=== PATIENT | male | born 1950 | race Caucasian/White ===

== ENCOUNTER 2017-10-16 19:26 | Observation (INO) | payer MEDICARE ==
[2017-10-16] MEDS ORDERED: MORPHINE SULFATE 4 MG/ML SYRINGE IVP STA (19:51)
[2017-10-16] MEDS ORDERED: RX INFO: IV CONTRAST WAS GIVEN 1 EACH MISC MISCELLANE PRN (19:51)
[2017-10-16] MEDS ORDERED: SODIUM CHLORIDE 0.9% 1,000 ML IV ONE (19:51)
[2017-10-16 20:20] LABS: Basophils % (A) 1 %; Eosinophils # (A) 0.2 k/uL (0-0.7); Eosinophils % (A) 3 %; HCT 43.6 % (39.0-53.0); HGB 14.8 gm/dL (13.0-17.5); Lymphocytes # (A) 1.2 k/uL (1.0-4.8); Lymphocytes % (A) 18 %; MCH 30.6 pg (25.0-35.0); MCV 90.2 fL (80.0-100.0); Mean Platelet Volume 6.8; Monocytes # (A) 0.4 k/uL (0-1.0); Monocytes % (A) 6 %; Neutrophils # (A) 4.7 k/uL (1.3-7.7); Neutrophils % (A) 72 %; Platelet Count 186 k/uL (150-450); RBC 4.84 m/uL (4.30-5.90); RDW 13.4 % (11.5-15.5); WBC 6.6 k/uL (3.8-10.6)
[2017-10-16 20:31] LABS: ALT 28 U/L (21-72); AST 24 U/L (17-59); Alkaline Phosphatase 59 U/L (38-126); Anion Gap 10 mmol/L; Blood Urea Nitrogen 17 mg/dL (9-20); Calcium 9.3 mg/dL (8.4-10.2); Carbon Dioxide 26 mmol/L (22-30); Chloride 104 mmol/L (98-107); Glucose 104 mg/dL (74-99); Potassium 4.3 mmol/L (3.5-5.1); Sodium 140 mmol/L (137-145); Total Bilirubin 1.2 mg/dL (0.2-1.3); Total Protein 6.3 g/dL (6.3-8.2)
--- NOTE | 2017-10-16 21:37 | ED ---
General Adult HPI - General Chief complaint: Abdominal Pain Stated complaint: Abd Pain Time Seen by Provider: 10/16/17 19:42 Source: patient Mode of arrival: ambulatory Limitations: no limitations - History of Present Illness Initial comments: Wilmer is a 67yo male with PMH significant for perforating ulcer now s/p partial gastrectomy and vagotomy who presents to the emergency department this evening for evaluation of right lower quadrant abdominal pain since waking this morning. Patient reports that he has been in his usual state of health recently , yesterday he did go to the [employer] where he is significant amount of popcorn. He states that today he woke with some right lower quadrant abdominal pain. He states that it was a dull cramping sensation, he tried to ignore it. Patient states that he had a normal bowel movement without any blood. He reports that he has not had much of an appetite and hasn't eaten or drank too much throughout the day today. He states that he was able to 10 to his usual weekend activities including mowing the lawn but throughout that time had persistent pain in his right lower quadrant. This evening the pain persisted and continued to get worse at which time he told his who decided to bring him to the ER for further evaluation. Patient reports that he had an appendectomy at the age of 11, he has never had a bowel obstruction or any known adhesions. He states that he had a colonoscopy at couple of months ago which noted a few polyps as well as some diverticuli, he's never had an episode of diverticulitis in the past. He was not advised that he should avoid any foods due to the diverticuli. She has a history of kidney stones but this pain is not similar, he has no history of urinary tract infections. He is not having any hematuria, dysuria or urinary frequency. - Related Data Home Medications Medication Instructions Recorded Confirmed No Known Home Medications [No 10/16/17 10/16/17 Known Home Medications] Allergies Allergy/AdvReac Type Severity Reaction Status Date / Time No Known Allergies Allergy Verified 10/16/17 19:41 Review of Systems ROS Statement: Those systems with pertinent positive or pertinent negative responses have been documented in the HPI. ROS Other: All systems not noted in ROS Statement are negative. Constitutional: Denies: fever, chills Respiratory: Denies: cough, dyspnea Cardiovascular: Denies: chest pain, palpitations Endocrine: Denies: fatigue Gastrointestinal: Reports: abdominal pain, nausea, diarrhea (chronic due to gastrectomy). Denies: vomiting, constipation, hematemesis, melena, hematochezia Genitourinary: Denies: urgency, dysuria Skin: Denies: rash, lesions Neurological: Denies: headache, weakness Psychiatric: Denies: anxiety Hematological/Lymphatic: Denies: easy bleeding Past Medical History Additional Past Medical History / Comment(s): kidney stones,colon polyps, diverticuli, perforated gastric ulcer History of Any Multi-Drug Resistant Organisms: None Reported Past Surgical History: Appendectomy, Plyoromyotomy Additional Past Surgical History / Comment(s): abdominal surgery Past Psychological History: No Psychological Hx Reported Smoking Status: Never smoker Past Alcohol Use History: Occasional Past Drug Use History: None Reported General Exam Limitations: no limitations General appearance: alert, in no apparent distress Head exam: Present: atraumatic, normocephalic Eye exam: Present: normal appearance ENT exam: Present: normal exam Neck exam: Present: normal inspection Respiratory exam: Present: normal lung sounds bilaterally. Absent: respiratory distress Cardiovascular Exam: Present: regular rate, normal rhythm GI/Abdominal exam: Present: soft, tenderness, normal bowel sounds, other (Well- healed midline surgical scar). Absent: distended, guarding, rebound, rigid Rectal exam: Present: deferred Extremities exam: Present: normal inspection, normal capillary refill. Absent: tenderness, pedal edema, joint swelling, calf tenderness Back exam: Present: normal inspection, full ROM Neurological exam: Present: alert, oriented X3 Psychiatric exam: Present: normal affect, normal mood Skin exam: Present: warm, dry Course Vital Signs 10/16/17 10/16/17 10/17/17 19:35 22:00 00:00 Temperature 97.4 F L 97.9 F 98.3 F Pulse Rate 65 77 63 Respiratory 16 20 20 Rate Blood Pressure 132/84 148/81 136/68 O2 Sat by Pulse 99 97 99 Oximetry Medical Decision Making - Medical Decision Making The patient was seen and evaluated, history is obtained from the patient and his at bedside Patient with right lower quadrant abdominal pain throughout the day today, decreased appetite, normal activity level. Patient with history of appendectomy in the past, known diverticulitis but no episodes of diverticulitis in the past. Patient with history of kidney stones but reports that this pain is not similar to previous episodes. Labs were reviewed with no significant abnormalities Computed tomography scan reveals prominent loops of bowel in the right lower quadrant, this could represent a very early small bowel obstruction, the patient did have a small bowel movement earlier today and is nauseated but not vomiting. Results were discussed with the patient and his at bedside, advised that I suspect he may have a very early or possibly even resolving bowel obstruction. I did recommend that the patient be brought into observation for serial abdominal exams and evaluation by a surgeon. Patient are agreeable to this. Patient reports that his anal has resolved after IV morphine. The results were discussed with surgery on-call Dr. Anaya at this time he recommends admission to medicine and he will evaluate the patient in the morning. Patient care was discussed with Dr. Lara who accepts the patient to his service with a consult to general surgery Dr. anaya. Observation and consult orders were placed. - Lab Data Result diagrams: 10/16/17 20:12 10/16/17 20:12 Lab Results 10/16/17 10/16/17 10/16/17 Range/Units 20:12 20:12 21:35 WBC 6.6 (3.8-10.6) k/uL RBC 4.84 (4.30-5.90) m/uL Hgb 14.8 (13.0-17.5) gm/dL Hct 43.6 (39.0-53.0) % MCV 90.2 (80.0-100.0) fL MCH 30.6 (25.0-35.0) pg MCHC 34.0 (31.0-37.0) g/dL RDW 13.4 (11.5-15.5) % Plt Count 186 (150-450) k/uL Neutrophils % 72 % Lymphocytes % 18 % Monocytes % 6 % Eosinophils % 3 % Basophils % 1 % Neutrophils # 4.7 (1.3-7.7) k/uL Lymphocytes # 1.2 (1.0-4.8) k/uL Monocytes # 0.4 (0-1.0) k/uL Eosinophils # 0.2 (0-0.7) k/uL Basophils # 0.0 (0-0.2) k/uL Sodium 140 (137-145) mmol/L Potassium 4.3 (3.5-5.1) mmol/L Chloride 104 (98-107) mmol/L Carbon Dioxide 26 (22-30) mmol/L Anion Gap 10 mmol/L BUN 17 (9-20) mg/dL Creatinine 0.69 (0.66-1.25) mg/dL Est GFR (CKD-EPI)AfAm >90 (>60 ml/min/1.73 sqM) Est GFR (CKD-EPI)NonAf >90 (>60 ml/min/1.73 sqM) Glucose 104 H (74-99) mg/dL Calcium 9.3 (8.4-10.2) mg/dL Total Bilirubin 1.2 (0.2-1.3) mg/dL AST 24 (17-59) U/L ALT 28 (21-72) U/L Alkaline Phosphatase 59 (38-126) U/L Total Protein 6.3 (6.3-8.2) g/dL Albumin 4.0 (3.5-5.0) g/dL Urine Color Yellow Urine Appearance Clear (Clear) Urine pH 5.5 (5.0-8.0) Ur Specific [place] 1.021 (1.001-1.035) Urine Protein Negative (Negative) Urine Glucose (UA) Negative (Negative) Urine Ketones Negative (Negative) Urine Blood Negative (Negative) Urine Nitrite Negative (Negative) Urine Bilirubin Negative (Negative) Urine Urobilinogen <2.0 (<2.0) mg/dL Ur Leukocyte Esterase Negative (Negative) Disposition Clinical Impression: RLQ abdominal pain Disposition: ADMITTED IP TO THIS [facility] Condition: Good Referrals: Barry Goodman DO [Primary Care Provider] - 1-2 days Time of Disposition: 02:00 Decision Time: 02:00
[2017-10-16 22:07] LABS: Appearance,Urine Clear (Clear); Bilirubin,Urine Negative (Negative); Blood,Urine Negative (Negative); Color,Urine Yellow; Glucose,Urine (UA) Negative (Negative); Ketones,Urine Negative (Negative); Leukocyte Esterase,Urine Negative (Negative); Nitrite,Urine Negative (Negative); PH, Urine 5.5 (5.0-8.0); Protein,Urine Negative (Negative); Specific Gravity,Urine 1.021 (1.001-1.035); Urobilinogen,Urine <2.0 mg/dL (<2.0)
--- NOTE | 2017-10-16 22:34 | CT ---
EXAMINATION TYPE: CT abdomen pelvis w con DATE OF EXAM: 10/16/2017 COMPARISON: NONE HISTORY: RLQ Pain CT DLP: 412.60 mGycm. Automated exposure control for dose reduction was used. TECHNIQUE: Helical acquisition of images was performed from the lung bases through the pelvis. CONTRAST: Performed without Oral Contrast and with IV Contrast, patient injected with 100 mL of Isovu e 300. FINDINGS: LUNG BASES: No significant abnormality is appreciated. LIVER/GB: No significant abnormality is appreciated. PANCREAS: No significant abnormality is seen. SPLEEN: No significant abnormality is seen. ADRENALS: No significant abnormality is seen. KIDNEYS: No significant abnormality is seen. FREE AIR: No free air is visualized. ABDOMINAL ADENOPATHY: None visualized REPRODUCTIVE ORGANS: No significant abnormality is seen URINARY BLADDER: No significant abnormality is seen. PELVIC ADENOPATHY: None visualized. OSSEOUS STRUCTURES: No significant abnormality is seen. BOWEL: There are fluid-filled distended loops of small bowel throughout the right and left lower kymberly drants. No bowel wall thickening, and the mesentery is remarkable. Would suggest continued clinical s urveillance - and follow-up IV contrast CT if warranted. VASCULATURE: Unremarkable. IMPRESSION: NONSPECIFIC SMALL BOWEL LOOP PROMINENCE IN THE RIGHT LOWER QUADRANT.
[2017-10-17] MEDS ORDERED: NALOXONE 0.4 MG/ML 1 ML VIAL IV PRN (01:55)
[2017-10-17] MEDS: SODIUM CHLORIDE 0.9% 1,000 ML IV SCH ×2 (02:22→08:35)
[2017-10-17 02:46] VITALS: RESP 16
[2017-10-17] MEDS ORDERED: MORPHINE SULFATE 4 MG/ML SYRINGE IVP PRN (03:20)
--- NOTE | 2017-10-17 13:53 | P.GSCN ---
History of Present Illness Consult date: 10/17/17 History of present illness: This 67-year-old male who presented a hospital last night with a chief complaint of abdominal pain and some nausea. He stated his last bowel movement was yesterday and it was liquid he normally has liquid bowel movements. He has past surgical history significant for pyloroplasty with vagotomy 35 years ago secondary to bleeding gastric ulcers. He also had an appendectomy at age 11. She's had similar symptoms before in the past usually resolve on their own. He' s never had had surgery for small bowel obstruction. He denies fevers chills he denies any other recent illness denies any sick contacts. Past Medical History Additional Past Medical History / Comment(s): kidney stones,colon polyps, diverticuli, perforated gastric ulcer History of Any Multi-Drug Resistant Organisms: None Reported Past Surgical History: Appendectomy, Plyoromyotomy Additional Past Surgical History / Comment(s): abdominal surgery Past Anesthesia/Blood Transfusion Reactions: No Reported Reaction Past Psychological History: No Psychological Hx Reported Smoking Status: Former smoker Past Alcohol Use History: Occasional Past Drug Use History: None Reported - Past Family History Father Family Medical History: No Reported History Mother Family Medical History: No Reported History Medications and Allergies Home Medications Medication Instructions Recorded Confirmed Type Aspirin EC [Ecotrin Low Dose] 81 mg PO DAILY 10/17/17 10/17/17 History Cholecalciferol [Vitamin D3] 1,000 unit PO DAILY 10/17/17 10/17/17 History Multivitamins, Thera [Multivitamin 1 tab PO DAILY 10/17/17 10/17/17 History (formulary)] Allergies Allergy/AdvReac Type Severity Reaction Status Date / Time No Known Allergies Allergy Verified 10/17/17 09:31 Surgical - Exam Osteopathic Statement: *. No significant issues noted on an osteopathic structural exam other than those noted in the History and Physical/Consult. Vital Signs Temp Pulse Resp BP Pulse Ox 97.4 F L 65 16 132/84 99 10/16/17 19:35 10/16/17 19:35 10/16/17 19:35 10/16/17 19:35 10/16/17 19:35 - General well developed, well nourished, no distress - Eyes PERRL - Neck no masses, trachea midline - Respiratory normal expansion, normal respiratory effort - Cardiovascular Rhythm: regular - Abdomen Abdomen: soft, non tender - Neurologic normal coordination, normal sensation - Psychiatric oriented to time, oriented to person, oriented to place Results - Labs 10/16/17 20:12 10/16/17 20:12 Abnormal Lab Results - Last 24 Hours (Table) 10/16/17 Range/Units 20:12 Glucose 104 H (74-99) mg/dL Diabetes panel 10/16/17 Range/Units 20:12 Sodium 140 (137-145) mmol/L Potassium 4.3 (3.5-5.1) mmol/L Chloride 104 (98-107) mmol/L Carbon Dioxide 26 (22-30) mmol/L BUN 17 (9-20) mg/dL Creatinine 0.69 (0.66-1.25) mg/dL Glucose 104 H (74-99) mg/dL Calcium 9.3 (8.4-10.2) mg/dL AST 24 (17-59) U/L ALT 28 (21-72) U/L Alkaline Phosphatase 59 (38-126) U/L Total Protein 6.3 (6.3-8.2) g/dL Albumin 4.0 (3.5-5.0) g/dL Calcium panel 10/16/17 Range/Units 20:12 Calcium 9.3 (8.4-10.2) mg/dL Albumin 4.0 (3.5-5.0) g/dL Pituitary panel 10/16/17 Range/Units 20:12 Sodium 140 (137-145) mmol/L Potassium 4.3 (3.5-5.1) mmol/L Chloride 104 (98-107) mmol/L Carbon Dioxide 26 (22-30) mmol/L BUN 17 (9-20) mg/dL Creatinine 0.69 (0.66-1.25) mg/dL Glucose 104 H (74-99) mg/dL Calcium 9.3 (8.4-10.2) mg/dL Adrenal panel 10/16/17 Range/Units 20:12 Sodium 140 (137-145) mmol/L Potassium 4.3 (3.5-5.1) mmol/L Chloride 104 (98-107) mmol/L Carbon Dioxide 26 (22-30) mmol/L BUN 17 (9-20) mg/dL Creatinine 0.69 (0.66-1.25) mg/dL Glucose 104 H (74-99) mg/dL Calcium 9.3 (8.4-10.2) mg/dL Total Bilirubin 1.2 (0.2-1.3) mg/dL AST 24 (17-59) U/L ALT 28 (21-72) U/L Alkaline Phosphatase 59 (38-126) U/L Total Protein 6.3 (6.3-8.2) g/dL Albumin 4.0 (3.5-5.0) g/dL - Imaging CT scan - abdomen: report reviewed, image reviewed CT scan - pelvis: report reviewed, image reviewed Assessment and Plan Assessment: Partial small bowel obstruction Plan: Patient has been nothing by mouth he is now started on clear liquid diet and is tolerating them. While I was in the room he actually had a bowel movement. He' ll be advanced to a soft diet as tolerated. Once he is tolerating a soft diet he may be discharged from a surgical standpoint. No plans for acute surgical intervention at this time.
[2017-10-17 14:30] VITALS: BP 136/77; PULSE 71; TEMP 98.2
--- NOTE | 2017-10-17 21:33 | HP ---
HISTORY AND PHYSICAL CHIEF COMPLAINT: Crampy abdominal pain. HISTORY OF PRESENT ILLNESS: This is the first admission for this 67-year-old white male who has otherwise been in good health. Several days ago he started to notice some intermittently crampy abdominal pain which is quite vague. He had no fever and chills, nausea, vomiting, diarrhea, melena, hematochezia, etc. It started to become somewhat worse and he came to emergency room where it was suspected that he may have a small bowel obstruction. The only other significant aspect of his history is he has had an appendectomy and vagotomy, pyloroplasty many years ago. REVIEW OF SYSTEMS: He has had no neurologic problems, chest pain, shortness of breath, cough, heart disease, hypertension, palpitations, jaundice, liver disease, renal failure, diabetes, etc. Past medical history, family history, personal and social histories are all otherwise unremarkable and noncontributory. He is not on any medication, not allergic to any. He has only had 2 surgeries already mentioned. He just had a colonoscopy about 2 months ago. He does not smoke. He drinks rarely. PHYSICAL EXAMINATION: Blood pressure is 132/85 with a pulse of 71, respirations of 10, and he is afebrile. GENERAL: He appeared to be slender, well developed, well nourished, in no acute distress. SKIN color is normal skin is warm, dry. LYMPH nodes not enlarged. HEENT: Head, ears, eyes, nose, mouth, and throat were normal. NECK veins not distended. Thyroid is not enlarged. CHEST is clear. CARDIAC exam is normal. ABDOMEN is flat, soft, nontender and bowel sounds are scant. EXTREMITIES: Normal. NEUROLOGICAL is intact. IMPRESSION: Partial or early bowel obstruction, probably secondary to adhesions. PLAN: 1. Bed rest. 2. IV fluids. 3. Clear liquids. 4. Continue to monitor his bowel activity and determine whether he may require surgical intervention eventually. MMODL / IJN: [id number] /
--- NOTE | 2017-10-18 07:01 | DS ---
DISCHARGE SUMMARY CHIEF COMPLAINT: Partial small bowel obstruction. HISTORY OF PRESENT ILLNESS AND PHYSICAL EXAM: Details of this man's history and physical can be found in the initial workup. LABORATORY STUDIES: While he was in a hospital he had laboratory studies, the details which can be found in the laboratory section of the chart. COURSE IN HOSPITAL: After admission, he was placed on bedrest and started on intravenous fluids and monitored for any developing bowel obstruction. He had none. He was passing gas and stool and eating and it was felt that he could go home on the . He will follow up with his own physician. FINAL DIAGNOSIS: Incomplete small-bowel obstruction. OPERATIONS: None. CONSULTATIONS: Surgery. He is improved. MMODL / IJN: [id number] /
== END 2017-10-17 15:37 | disposition home or self-care (01) ==
LOC: EC 19:26 → 3SUR 10-17 01:57
PROVIDERS: ADMIT Family Medicine; ATTEND Family Medicine
DX: K56.600 Partial intestinal obstruction, unspecified as to cause (principal); K57.30 Diverticulosis of large intestine without perforation or abscess without bleeding; Z90.3 Acquired absence of stomach [part of]; Z90.89 Acquired absence of other organs; Z86.010 Personal history of colon polyps; Z87.442 Personal history of urinary calculi; Z87.11 Personal history of peptic ulcer disease; Z87.891 Personal history of nicotine dependence; Z79.82 Long term (current) use of aspirin
CPT/HCPCS: 99285 ×2; 96374 ×2; 96361 ×2; 36415; 80053; 85025; 81003; 74177; G0378; J2270; Q9967